=== PATIENT | male | born 1945 | race Caucasian/White ===

== ENCOUNTER → 2021-10-02 | Outpatient (CLI) | payer MEDICARE, BC ==
--- NOTE | 2021-10-04 23:19 | CT ---
EXAMINATION TYPE: CT urogram wo/w con DATE OF EXAM: 10/02/2021 COMPARISON: None HISTORY: 76-year-old male C67.9, Bladder and prostate cancer TECHNIQUE: Contiguous axial scanning of the abdomen and pelvis performed without and with IV Contrast , patient injected with 80 mL of Isovue 370. Delayed images through the kidneys and bladder were obta ined. Coronal/sagittal reconstructions performed. 3-D reconstructions generated on a dedicated [employer] workstation. CT DLP: 4038.39 mGycm Automated exposure control for dose reduction was used. FINDINGS: Heart normal size without pericardial effusion. Prominent epicardial fat pad. Tiny hiatal hernia. Scott e scattered reticular changes in the lower lungs. Lungs are reported separately. Subpleural fat along the posterior costophrenic angles without pleural effusion. 7 mm hypodensity left hepatic dome too small for accurate CT characterization, likely a cyst. Liver mildly enlarged at 19.0 cm. Otherwise, no focal liver lesion. No biliary ductal dilatation. Portal ve nous system is patent. Gallbladder, adrenal glands, and pancreas within normal limits. Spleen with anterior splenule and a couple calcified granulomas. The kidneys show a couple punctate 2 mm nonobstructive calculi in the lower pole on each side. Extrar enal pelvis on the left. No suspicious renal lesion on either side. Symmetric uptake and excretion of contrast from both kidneys. There is nonopacification of the distal half of the left ureter. Only a small segment of the distal third right ureter remains unopacified. No definite suspicious abnormality or soft tissue thickening is seen. No abnormal filling defects see n within the renal collecting system. There is a 1.2 cm parapelvic cyst right kidney. Small fatty umbilical hernia. No dilated small bowel, free fluid, or free air. Normal appendix. Scattered mild stool burden. Redundant sigmoid colon. Scattered mid abdominal mesenteric lymph nodes are borderline enlarged up to 9 mm. Abnormal fungating mass along the posterior base of the bladder measuring 5.8 cm wide by 4.9 cm crani ocaudal by 3.5 cm AP. This becomes contiguous with a thin irregular prostate gland. The prostatic ure ter is displaced over to the right secondary to heterogeneous, irregular prostatic mass. The prostate gland itself measures up to 5.4 cm wide. Possible posterior extension into the perirectal space and invasion into the wall of the distal rectu m anteriorly, refer to series 15 axial image 86. Abnormal enlarged 2.1 cm left obturator chain lymph node, axial image 76. Abnormal enlarged 2.0 cm left inguinal lymph node, axial image 92. Nonspecific 9 mm upper perirectal nodularity on the right, axial image 72. Lower mid mesenteric 1.1 cm nodularity, axial image 66. No abnormal fluid collection in the pelvis. Bones: At least mild degenerative change of the hips. Degenerative changes bilateral SI joints. Moderate to advanced dissection of the degenerative change mid to lower lumbar spine along with hyper trophic facet arthropathy. Nonspecific few small sclerotic foci probably represent lymph nodes. These can be correlated with nuc [facility] whole body bone scan. IMPRESSION: 1. CHEST REPORTED SEPARATELY. 2. FUNGATING MASS ALONG THE POSTERIOR WALL OF THE BASE OF THE BLADDER MEASURING UP TO 5.8 X 4.9 X 2.5 CM. CONTIGUOUS EXTENSION INTO THE PROSTATE GLAND WHICH IS ENLARGED UP TO 5.4 CM WIDE. THE PROSTATIC URETHRA IS DISPLACED OVER TO THE RIGHT SECONDARY TO THE UNDERLYING MASS. 3. SCATTERED MID ABDOMINAL MESENTERIC LYMPH NODES BORDERLINE ENLARGED UP TO 9 MM ARE NONSPECIFIC. FOL LOW-UP TO EXCLUDE EARLY METASTATIC DISEASE. A 2.0 CM LEFT INGUINAL LYMPH NODE, A 2.1 CM LEFT OBTURATO R CHAIN LYMPH NODE, AND A 1.1 CM LOWER MID MESENTERIC NODULE ARE MORE SUSPICIOUS FOR METASTATIC DISEA SE. 4. POSSIBLE FOCAL DIRECT INVASION POSTERIORLY FROM THE PROSTATE GLAND TO THE ANTERIOR WALL OF THE LOW ER RECTUM. 5. NO URETERAL OBSTRUCTION. A PUNCTATE 2 MM CALCULUS IS PRESENT IN THE LOWER POLE OF EACH KIDNEY.
--- NOTE | 2021-10-05 00:11 | CT ---
EXAMINATION TYPE: CT chest w con DATE OF EXAM: 10/02/2021 COMPARISON: None HISTORY: 76-year-old male C67.9, Bladder and prostate cancer TECHNIQUE: Contiguous axial scanning of the chest after the administration of dose of abd/pelvis urog luzma mL of Isovue 370. Coronal/sagittal reconstructions performed. CT DLP: 615.61mGycm. Automatic exposure control utilized for a dose reduction. FINDINGS: Heart normal size without pericardial effusion. Conventional arch vessel branching anatomy. Mildly ectatic upper descending thoracic aorta 3.1 cm. Scattered nonenlarged mesenteric lymph nodes, largest lower right paratracheal measuring 8 mm. No tho racic lymphadenopathy by CT size criteria. There is a calcified lymph node lower right paraesophageal suggesting prior granulomatous disease. Some mild patchy and reticular changes in the anterior right upper lobe could represent some intersti tial scarring or residual pneumonitis, axial image 12. Some reticular mild patchy densities in the lo wer lungs could represent the same. No pleural effusion. Prominent subpleural fat at the lower lungs. Abdomen reported separately. Bones: No osseous destructive process. 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 IMPRESSION: 1. Some mild patchy and reticular changes in the anterior right upper lobe and also in the bilateral lower lungs. This could represent areas of interstitial scarring or residual pneumonitis. Correlate f or any recent infection such as COVID pneumonia. 2. No evidence for metastatic disease in the chest. 3. Abdomen and pelvis reported separately.
== END | disposition home or self-care (01) ==
LOC: RADCTMAIN 13:07
PROVIDERS: ATTEND Urology
DX: C67.4 Malignant neoplasm of posterior wall of bladder (principal); N20.0 Calculus of kidney; R59.0 Localized enlarged lymph nodes; R91.8 Other nonspecific abnormal finding of lung field
CPT/HCPCS: 82565; 84520; 71260; 74178; 36415; 74400; Q9967

== ENCOUNTER → 2022-06-24 | Outpatient (CLI) | payer MEDICARE, BC ==
--- NOTE | 2022-06-24 13:50 | CT ---
EXAMINATION TYPE: CT ChestAbdPelvis w con DATE OF EXAM: 06/24/2022 COMPARISON: CT chest and urogram October 02, 2021 HISTORY: obs for mets. hx of bladder ca CT DLP: 2334.70 mGycm. Automated Exposure Control for Dose Reduction was Utilized. CONTRAST: CT scan of the thorax, abdomen and pelvis is performed without oral but with IV Contrast, patient inj ected with 50 mL of Isovue 300. FINDINGS: LUNGS: Dependent atelectasis in the right lung. No suspicious new noncalcified greater than 5 mm nodu les or masses. No pleural effusion or pneumothorax seen bilaterally. Tiny calcifications or calcified nodules medial right lung base redemonstrated. Elevated left hemidiaphragm redemonstrated. MEDIASTINUM: There are no new greater than 1 cm hilar or mediastinal lymph nodes. No cardiomegaly o r pericardial effusion is seen. Inferior calcified nodule or lymph node just above diaphragm redemons trated. LIVER/GB: No significant abnormality is appreciated. PANCREAS: No significant abnormality is seen. SPLEEN: No significant abnormality is seen. ADRENALS: No significant abnormality is seen. KIDNEYS: Symmetric cortical medullary uptake and excretion without hydronephrosis seen bilaterally. A dequate distention of bladder with mild wall thickening greatest superiorly and mild ill-defined flui d and fat stranding superiorly. Prior posterior-inferior mass extending into prostate gland is not cl early seen on current exam. BOWEL: No significant abnormality is seen. Normal-appearing appendix incidentally noted. GENITAL ORGANS: Prostate gland is now normal in size. LYMPH NODES: No new greater than 1cm abdominal or pelvic lymph nodes are appreciated. Some prominent but subcentimeter predominantly left-sided mesenteric lymph nodes are redemonstrated and stable, for reference axial image 76. OSSEOUS STRUCTURES: Mild/moderate multilevel spurring in the thoracolumbar spine with areas of disc s pace narrowing greatest right L3-L4 and left L4-L5 levels redemonstrated. OTHER: Small amount of free fluid in the presacral space on current study. IMPRESSION: Interval successful treatment of bladder mass/neoplasm without obvious new or residual ma ss or adenopathy to suggest persistent or metastatic neoplasm. Posttreatment changes to the bladder a re suspected causing the mild wall thickening and mild to moderate adjacent fluid and fat stranding e xtending into the presacral space. Correlate clinically.
== END | disposition home or self-care (01) ==
LOC: RADCTMAIN 11:13
PROVIDERS: ATTEND Internal Medicine Hematology & Oncology
DX: C67.4 Malignant neoplasm of posterior wall of bladder (principal)
CPT/HCPCS: 82565; 84520; 71260; 74177; 36415; Q9967

== ENCOUNTER → 2022-09-27 | Outpatient (CLI) | payer MEDICARE, BC ==
--- NOTE | 2022-09-27 12:41 | CT ---
EXAMINATION TYPE: CT ChestAbdPelvis w con CT DLP: 2134.20 mGycm, Automated exposure control for dose reduction was used. DATE OF EXAM: 09/27/2022 12:02 PM COMPARISON: 06/24/2022 CT abdomen pelvis, CT urogram 10/02/2021. CLINICAL INDICATION:Male, 77 years old with history of C67.4 Bladder Ca , Z03.89 suspect mets, Hx yuliana dder ca. Suspect mets. Technique: Multiple axial images of the chest, abdomen, and pelvis were obtained. Two-dimensional cor onal and sagittal reconstructions were obtained. Contrast used:70 mL of Isovue 300 with IV Contrast, Oral contrast used: with Oral Contrast Findings: CHEST: LUNGS/ PLEURA: No evidence enlarging or new pulmonary nodules. No focal consolidation, pneumothorax o r pleural effusion. Scattered streaky atelectasis/scarring. AIRWAY: Patent and unremarkable. HEART: Heart is within normal limits for size. Mild coronary artery atherosclerosis. MEDIASTINUM: No gross evidence of adenopathy. VASCULATURE: No aortic aneurysm. MUSCULOSKELETAL: No acute osseous abnormalities. SOFT TISSUES/LYMPH NODES: Unremarkable. LOWER NECK: No significant findings. ABDOMEN: ABDOMEN LIVER: Unremarkable GALLBLADDER AND BILE DUCTS: Unremarkable. PANCREAS: Unremarkable. SPLEEN: Small splenules are present. ADRENAL GLANDS: Unremarkable. KIDNEYS AND URETERS: No evidence of hydronephrosis or renal calculus. The ureters are unremarkable. PELVIS BLADDER: Mild posterior bladder wall thickening measuring up to 1.0 cm which appears similar to prior on 06/24/2022. REPRODUCTIVE: Prostate gland appears surgically absent. ABDOMEN & PELVIS STOMACH AND BOWEL: No evidence of bowel obstruction. PERITONEUM: No evidence of pneumoperitoneum or free fluid. VASCULATURE: No evidence of aortic aneurysm. MUSCULOSKELETAL: No acute osseous abnormalities LYMPH NODES: No gross evidence for lymphadenopathy. SOFT TISSUE/ABDOMINAL WALL: Bilateral fat-containing inguinal hernias. Fat-containing umbilical herni a. IMPRESSION: 1. No lymphadenopathy or suspicious mass in the surgical bed to suggest recurrence or metastatic dis ease. 2. Surgically absent prostate. 3. Fat-containing inguinal and umbilical hernias.
== END | disposition home or self-care (01) ==
LOC: RADCTMAIN 09:46
PROVIDERS: ATTEND Internal Medicine Hematology & Oncology
DX: C67.4 Malignant neoplasm of posterior wall of bladder (principal); K42.9 Umbilical hernia without obstruction or gangrene; K40.21 Bilateral inguinal hernia, without obstruction or gangrene, recurrent; Z90.79 Acquired absence of other genital organ(s)
CPT/HCPCS: 82565; 84520; 71260; 74177; 36415; Q9967 ×2

== ENCOUNTER → 2022-12-27 | Outpatient (CLI) | payer MEDICARE, BC ==
--- NOTE | 2022-12-27 21:50 | CT ---
EXAMINATION TYPE: CT ChestAbdPelvis wo con DATE OF EXAM: 12/27/2022 INDICATION: BLADDER CANCER. COMPARISON: 09/27/2022 CT DLP: DLP 1577 mGycm CONTRAST: Performed with Oral Contrast. No intravenous contrast TECHNIQUE: Axial images at 5 mm thick sections. Reconstructed images in the coronal plane. Delayed images through the kidneys. FINDINGS: CT CHEST: Portion of the thyroid visualized is normal. No suspicious lung nodules or focal infiltrates are present. No enlarged mediastinal or hilar adenopathy is evident. The ascending aorta diameter at the level of the main pulmonary artery is 3.9 cm. The main pulmonary artery diameter at the bifurcation is 2.[address] ABDOMEN: Liver: Normal Spleen: Normal Pancreas: Normal Adrenal glands: The adrenal glands are normal. Gallbladder: Normal Kidneys: No masses are evident. No hydronephrosis is present. No cysts are present. No renal stone s are evident. Aorta: Normal Inferior vena cava: Normal. CT PELVIS: Loops of bowel within the abdomen and pelvis are normal. Some perirectal stranding may be present wi thin the fat. There are loops of bowel which are incompletely distended or lack oral contrast limiti ng their evaluation. Appendix: Normal as visualized. Urinary bladder: No discrete mass or wall thickening is identified within the urinary bladder. Previo us posterior wall thickening may be diminished from comparison Genitourinary structures: Prostate may be small. Correlate with the patient's surgical history Osseous structures: No suspicious lytic or sclerotic lesions. IMPRESSIONS: 1. No discrete abnormality to suggest recurrent or metastatic bladder cancer. 2. There is some mild perirectal fat stranding.
== END | disposition home or self-care (01) ==
LOC: RADCTMAIN 09:47
PROVIDERS: ATTEND Internal Medicine Hematology & Oncology
DX: C67.9 Malignant neoplasm of bladder, unspecified (principal); Z03.89 Encounter for observation for other suspected diseases and conditions ruled out
CPT/HCPCS: 36415; 71250; 74176; 82565; 84520

== ENCOUNTER → 2023-04-07 | Outpatient (CLI) | payer MEDICARE, BC ==
[2023-04-07 10:01] LABS: African American GFR (CKD) 63 (>60 ml/min/1.73 sqM); Blood Urea Nitrogen 19 mg/dL (9-20); Non-African American GFR(CKD) 55 (>60 ml/min/1.73 sqM)
--- NOTE | 2023-04-07 11:20 | CT ---
EXAMINATION TYPE: CT ChestAbdPelvis w con CT DLP: 2831.9 mGycm, Automated exposure control for dose reduction was used. DATE OF EXAM: 04/07/2023 11:09 AM COMPARISON: Multiple CT chest abdomen pelvis most recent 12/27/2022 CLINICAL INDICATION:Male, 77 years old with history of C67.9 BLADDER CANCER; PHH, Bladder cancer Technique: Multiple axial images of the chest, abdomen, and pelvis were obtained following the intrav enous administration of 100 mL Isovue-300. Oral contrast was administered. Two-dimensional coronal an d sagittal reconstructions were obtained. Findings: CHEST: LUNGS/ PLEURA: No evidence enlarging or new pulmonary nodules. No focal consolidation, pneumothorax o r pleural effusion. Scattered streaky atelectasis/scarring redemonstrated. Elevated left hemidiaphrag m. AIRWAY: Patent and unremarkable. HEART: Heart is within normal limits for size. No pericardial effusion. Mild coronary artery atherosc lerosis. MEDIASTINUM: No evidence of adenopathy. Calcified subcarinal granulomas. VASCULATURE: No aortic aneurysm. MUSCULOSKELETAL: No acute osseous abnormalities. No aggressive osseous lesion. SOFT TISSUES/LYMPH NODES: Unremarkable. LOWER NECK: No significant findings. ABDOMEN: ABDOMEN LIVER: Unremarkable GALLBLADDER AND BILE DUCTS: Unremarkable. PANCREAS: Unremarkable. SPLEEN: Small splenules are present. ADRENAL GLANDS: Unremarkable. KIDNEYS AND URETERS: No evidence of hydronephrosis or renal calculus. The ureters are unremarkable. Contrast is demonstrated within both collecting systems on delayed phase. The kidneys enhance contras t symmetrically. PELVIS BLADDER: Mild posterior bladder wall thickening measuring up to 1.0 cm which appears similar to prior on 06/24/2022. REPRODUCTIVE: Posttreatment changes of the prostate gland. ABDOMEN & PELVIS STOMACH AND BOWEL: Stomach and duodenum are unremarkable. No focal bowel wall thickening or surroundi ng inflammatory changes. The appendix is within normal limits. No evidence of bowel obstruction. PERITONEUM: No evidence of pneumoperitoneum or free fluid. Similar presacral edema. VASCULATURE: Mild atherosclerotic calcifications are present throughout the abdominal aorta and its b ranches. No abdominal aortic aneurysm. MUSCULOSKELETAL: No acute osseous abnormalities. Mild multilevel degenerative disease of the lower [place] mbar spine. No aggressive osseous lesion. LYMPH NODES: No gross evidence for lymphadenopathy. SOFT TISSUE/ABDOMINAL WALL: Bilateral fat-containing inguinal hernias. Fat-containing umbilical herni a. IMPRESSION: No lymphadenopathy or suspicious mass in the surgical bed to suggest recurrence or metastatic disease .
== END | disposition home or self-care (01) ==
LOC: RADCTMAIN 09:08
PROVIDERS: ATTEND Internal Medicine Hematology & Oncology
DX: C67.4 Malignant neoplasm of posterior wall of bladder (principal); D70.2 Other drug-induced agranulocytosis; M12.9 Arthropathy, unspecified; N18.9 Chronic kidney disease, unspecified
CPT/HCPCS: 82565; 84520; 71260; 74177; 36415; Q9967

== ENCOUNTER → 2023-07-07 | Outpatient (CLI) | payer MEDICARE, BC ==
[2023-07-07 15:08] LABS: African American GFR (CKD) 63 (>60 ml/min/1.73 sqM); Blood Urea Nitrogen 25 mg/dL (9-20); Non-African American GFR(CKD) 54 (>60 ml/min/1.73 sqM)
--- NOTE | 2023-07-08 08:59 | CT ---
EXAMINATION TYPE: CT ChestAbdPelvis w con DATE OF EXAM: 07/07/2023 COMPARISON: 04/07/2023 HISTORY: f/u bladder ca CT DLP: 2483.8 mGycm Automated exposure control for dose reduction was used. CONTRAST: CT scan of the chest, abdomen and pelvis is performed with Oral Contrast and with IV Contrast, patien t injected with 80cc mL of Isovue 370. FINDINGS: LUNGS: Emphysematous changes are noted. Reticular intralobular septal thickening along the periphery of the lung likely representing mild chronic interstitial lung disease. Subsegmental consolidation mo st compatible with atelectasis or scarring stable. There is a right apical nodule image 14 measuring 7 mm and extends to the pleural surface. No focal pneumonia. No interstitial edema. No pleural effusion or pneumothorax. There are no calcific ation in lymph nodes in the subcarinal region. MEDIASTINUM: There are no greater than 1 cm hilar or mediastinal lymph nodes. No pericardial effusi on is seen. Aorta of normal caliber. Minimal coronary artery calcification. OTHER: Small calcification seen adjacent to a small hiatal hernia. LIVER/GB: No significant abnormality is appreciated. PANCREAS: No significant abnormality is seen. SPLEEN: Small granuloma noted. Small accessory spleen. ADRENALS: No significant abnormality is seen. KIDNEYS: No significant abnormality is seen. BOWEL: No evidence of obstruction. Appendix normal. Correlate for constipation. LYMPH NODES: No greater than 1 cm abdominal or pelvic lymph nodes are appreciated. OSSEOUS STRUCTURES: Hypertrophic and degenerative changes of the spine. Bilateral hip arthropathy. Sc lerosis involving the femoral heads are likely post arthritic OTHER: Bladder has a normal appearance. Prostate normal in size. IMPRESSION: 1. No diagnostic evidence of mass, pathologic adenopathy or metastases. 2. 6 mm apical nodule likely represents portions of apical scarring. Follow-up [address] scan chest recommended.
== END | disposition home or self-care (01) ==
LOC: RADCTMAIN 14:12
PROVIDERS: ATTEND Internal Medicine Hematology & Oncology
DX: C64.9 Malignant neoplasm of unspecified kidney, except renal pelvis (principal); C67.4 Malignant neoplasm of posterior wall of bladder; D70.2 Other drug-induced agranulocytosis; N18.9 Chronic kidney disease, unspecified; M12.9 Arthropathy, unspecified
CPT/HCPCS: 82565; 84520; 71260; 74177; 36415; Q9967

== ENCOUNTER → 2023-11-07 | Outpatient (CLI) | payer MEDICARE, BC ==
[2023-11-07 10:10] LABS: African American GFR (CKD) 55 (>60 ml/min/1.73 sqM); Blood Urea Nitrogen 19 mg/dL (9-20); Non-African American GFR(CKD) 48 (>60 ml/min/1.73 sqM)
--- NOTE | 2023-11-07 11:49 | CT ---
EXAMINATION TYPE: CT ChestAbdPelvis w con CT DLP: 1520 mGycm, Automated exposure control for dose reduction was used. DATE OF EXAM: 11/07/2023 11:39 AM COMPARISON: Multiple priors dating back to 04/07/2023 CLINICAL INDICATION:Male, 78 years old with history of C67.4 POSTERIOR BLADDER; PHH, BLADDER/PROSTATE CA Technique: CT ChestAbdPelvis w con; Multiple axial images were obtained. Two-dimensional coronal and sagittal reconstructions were obtained. Contrast used:80 mL of Isovue 300 with IV Contrast, Oral contrast used: with Oral Contrast Findings: CHEST: LUNGS/ PLEURA: No evidence enlarging or new pulmonary nodules. No focal consolidation, pneumothorax o r pleural effusion. Stable scattered streaky atelectasis/scarring. Elevated left hemidiaphragm, uncha nged. AIRWAY: Patent and unremarkable. HEART: Heart is within normal limits for size. No pericardial effusion. Mild coronary artery atherosc lerosis. MEDIASTINUM: No evidence of adenopathy. Calcified subcarinal granulomas. VASCULATURE: No aortic aneurysm. MUSCULOSKELETAL: No acute osseous abnormalities. No aggressive osseous lesion. SOFT TISSUES/LYMPH NODES: Unremarkable. LOWER NECK: No significant findings. ABDOMEN: ABDOMEN LIVER: Unremarkable GALLBLADDER AND BILE DUCTS: Unremarkable. PANCREAS: Unremarkable. SPLEEN: Small splenules are present. ADRENAL GLANDS: Unremarkable. KIDNEYS AND URETERS: No evidence of hydronephrosis or renal calculus. The ureters are unremarkable. Contrast is demonstrated within both collecting systems on delayed phase. The kidneys enhance contras t symmetrically. PELVIS BLADDER: Mild posterior bladder wall thickening measuring up to 1.0 cm which appears similar to prior on 06/24/2022. REPRODUCTIVE: Posttreatment changes of the prostate gland. ABDOMEN & PELVIS STOMACH AND BOWEL: Stomach and duodenum are unremarkable. No focal bowel wall thickening or surroundi ng inflammatory changes. The appendix is within normal limits. No evidence of bowel obstruction. PERITONEUM: No evidence of pneumoperitoneum or free fluid. Similar presacral edema. VASCULATURE: Mild atherosclerotic calcifications are present throughout the abdominal aorta and its b ranches. No abdominal aortic aneurysm. MUSCULOSKELETAL: No acute osseous abnormalities. Mild multilevel degenerative disease of the lower [place] mbar spine. No aggressive osseous lesion. LYMPH NODES: No gross evidence for lymphadenopathy. SOFT TISSUE/ABDOMINAL WALL: Bilateral fat-containing inguinal hernias. Fat-containing umbilical herni a. IMPRESSION: No lymphadenopathy or suspicious mass in the surgical bed to suggest recurrence or metastatic disease . .
== END | disposition home or self-care (01) ==
LOC: RADCTMAIN 09:35
PROVIDERS: ATTEND Internal Medicine Hematology & Oncology
DX: C67.4 Malignant neoplasm of posterior wall of bladder (principal); D70.2 Other drug-induced agranulocytosis; N18.9 Chronic kidney disease, unspecified; M12.9 Arthropathy, unspecified; Z85.46 Personal history of malignant neoplasm of prostate
CPT/HCPCS: 82565; 84520; 71260; 74177; 36415; Q9967

== ENCOUNTER → 2024-03-05 | Outpatient (CLI) | payer MEDICARE, BC ==
--- NOTE | 2024-03-05 18:31 | CT ---
EXAMINATION TYPE: CT ChestAbdPelvis wo con CT DLP: 1817.3 mGycm, Automated exposure control for dose reduction was used. DATE OF EXAM: 03/05/2024 6:04 PM COMPARISON: 11/07/2023 CLINICAL INDICATION:Male, 78 years old with history of C67.4 Bladder cancer; PHH, bladder ca Technique: CT ChestAbdPelvis wo con; Multiple axial images were obtained. Two-dimensional coronal and sagittal reconstructions were obtained. Contrast used: mL of , none Oral contrast used: with Oral Contrast Findings: CHEST: LUNGS/ PLEURA: No evidence enlarging or new pulmonary nodules. No focal consolidation, pneumothorax o r pleural effusion. Stable scattered streaky atelectasis/scarring. Elevated left hemidiaphragm, uncha nged. AIRWAY: Patent and unremarkable. HEART: Heart is within normal limits for size. No pericardial effusion. Mild coronary artery atherosc lerosis. MEDIASTINUM: No evidence of adenopathy. Calcified subcarinal granulomas. VASCULATURE: No aortic aneurysm. MUSCULOSKELETAL: No acute osseous abnormalities. No aggressive osseous lesion. SOFT TISSUES/LYMPH NODES: Unremarkable. LOWER NECK: No significant findings. ABDOMEN: ABDOMEN LIVER: Unremarkable GALLBLADDER AND BILE DUCTS: Unremarkable. PANCREAS: Unremarkable. SPLEEN: Small splenules are present. ADRENAL GLANDS: Unremarkable. KIDNEYS AND URETERS: No evidence of hydronephrosis or renal calculus. The ureters are unremarkable. Contrast is demonstrated within both collecting systems on delayed phase. The kidneys enhance contras t symmetrically. PELVIS BLADDER: Mild posterior bladder wall thickening measuring up to 1.0 cm which appears similar to prior on 06/24/2022. REPRODUCTIVE: Posttreatment changes of the prostate gland. ABDOMEN & PELVIS STOMACH AND BOWEL: Stomach and duodenum are unremarkable. No focal bowel wall thickening or surroundi ng inflammatory changes. The appendix is within normal limits. No evidence of bowel obstruction. PERITONEUM: No evidence of pneumoperitoneum or free fluid. Similar presacral edema. VASCULATURE: Mild atherosclerotic calcifications are present throughout the abdominal aorta and its b ranches. No abdominal aortic aneurysm. MUSCULOSKELETAL: No acute osseous abnormalities. Mild multilevel degenerative disease of the lower [place] mbar spine. No aggressive osseous lesion. LYMPH NODES: No gross evidence for lymphadenopathy. SOFT TISSUE/ABDOMINAL WALL: Bilateral fat-containing inguinal hernias. Fat-containing umbilical herni a. IMPRESSION: Similar exam, no lymphadenopathy likely or suspicious mass in the surgical bed to suggest recurrence or metastatic disease. .
== END | disposition home or self-care (01) ==
LOC: RADCTMAIN 15:37
PROVIDERS: ATTEND Internal Medicine Hematology & Oncology
DX: C67.4 Malignant neoplasm of posterior wall of bladder (principal); D70.2 Other drug-induced agranulocytosis; N18.9 Chronic kidney disease, unspecified; M12.9 Arthropathy, unspecified; I10 Essential (primary) hypertension
CPT/HCPCS: 71250; 74176

== ENCOUNTER → 2024-03-05 | Outpatient (CLI) | payer MEDICARE, BC ==
[2024-03-05 16:12] LABS: Creatinine,Urine Random 137.9 mg/dL
[2024-03-05 19:21] LABS: Basophils # (A) 0.04 X 10*3/uL (0.00-0.10); Basophils % (A) 0.9 %; Eosinophils # (A) 0.27 X 10*3/uL (0.04-0.35); Eosinophils % (A) 5.9 %; HCT 40.5 % (39.6-50.0); HGB 13.8 g/dL (13.0-17.0); Lymphocytes # (A) 1.17 X 10*3/uL (0.90-5.00); Lymphocytes % (A) 25.4 %; MCH 31.2 pg (27.0-32.0); MCHC 34.1 g/dL (32.0-37.0); MCV 91.6 FL (80.0-97.0); Mean Platelet Volume 10.3 FL (9.5-12.2); Monocytes % (A) 8.7 %; NRBC Per 100 WBC 0 X 10*3/uL (0.00-0.01); Neutrophils # (A) 2.72 X 10*3/uL (1.80-7.70); Neutrophils % (A) 58.9 %; Platelet Count 139 X 10*3/uL (140-440); RBC 4.42 X 10*6/uL (4.40-5.60); RDW 13.6 % (11.5-14.5); WBC 4.61 X 10*3/uL (4.50-10.00)
[2024-03-05 19:57] LABS: % Iron Saturation 19.39 (15.00-50.00); BUN/Creat Ratio 14.57 Ratio (12.00-20.00); Blood Urea Nitrogen 20.4 mg/dL (9.0-27.0); Calcium 9.3 mg/dL (8.7-10.3); Carbon Dioxide 24.3 mmol/L (21.6-31.8); Chloride 106 mmol/L (96-109); Glucose 119 mg/dL (70-110); Iron 64 UG/DL (65-175); Magnesium 1.5 mg/dL (1.5-2.4); Phosphorus 2.8 mg/dL (2.4-5.1); Potassium 4.4 mmol/L (3.5-5.5); Sodium 144 mmol/L (135-145); Total Iron Binding Capacity 330 UG/DL (228-460); Uric Acid 7.5 mg/dL (3.7-8.7)
[2024-03-05 20:18] LABS: Appearance,Urine Clear (Clear); Bilirubin,Urine Negative (Negative); Blood,Urine Negative (Negative); Color,Urine Yellow (Yellow); Ketones,Urine Negative (Negative); Nitrite,Urine Negative (Negative); Specific Gravity,Urine 1.018 (1.001-1.030); Urobilinogen,Urine 0.2 E.U./DL
== END | disposition home or self-care (01) ==
LOC: LABWHC1 15:11
PROVIDERS: ATTEND Nurse Practitioner Adult Health
DX: E55.9 Vitamin D deficiency, unspecified (principal); E21.3 Hyperparathyroidism, unspecified; M10.9 Gout, unspecified; N39.0 Urinary tract infection, site not specified; N18.31 Chronic kidney disease, stage 3a; D63.1 Anemia in chronic kidney disease; R80.9 Proteinuria, unspecified
CPT/HCPCS: 36415; 80048; 81003; 82306; 82570; 82728; 83540; 83550; 83735; 83970; 84100; 84156; 84550; 85025

== ENCOUNTER → 2024-09-03 | Outpatient (CLI) | payer MEDICARE, BC ==
--- NOTE | 2024-09-03 14:32 | CT ---
EXAMINATION TYPE: CT ChestAbdPelvis wo con CT DLP: 1818.10 mGycm, Automated exposure control for dose reduction was used. DATE OF EXAM: 09/03/2024 1:13 PM COMPARISON: Multiple CT chest abdomen pelvis with most recent 03/05/2024 CLINICAL INDICATION:Male, 79 years old with history of C67.4 bladder ca; PHH, F/U BLADDER CANCER Technique: Multiple axial images of the chest, abdomen, and pelvis were obtained following without th e administration intravenous contrast. Oral contrast was administered. Evaluation is limited due to l ack of intravenous contrast. Two-dimensional coronal and sagittal reconstructions were obtained. Findings: CHEST: LUNGS/ PLEURA: No pleural effusion, focal consolidation, pneumothorax. No enlarging or new pulmonary nodules. Stable scattered streaky scarring. AIRWAY: Patent and unremarkable.. HEART: Size within normal limits.No pericardial effusion. Mild coronary atherosclerosis. MEDIASTINUM: No gross evidence of adenopathy. Calcified subcarinal granulomas. VASCULATURE: No aortic aneurysm. MUSCULOSKELETAL: No acute osseous abnormalities. No aggressive osseous lesion. SOFT TISSUES/LYMPH NODES: Mild bilateral gynecomastia. LOWER NECK: No significant findings. ABDOMEN: ABDOMEN LIVER: Unremarkable noncontrast appearance GALLBLADDER AND BILE DUCTS: Cholelithiasis. No biliary dilatation. PANCREAS: Unremarkable. SPLEEN: Unremarkable. ADRENAL GLANDS: Unremarkable. KIDNEYS AND URETERS: No evidence of hydronephrosis or renal calculus. PELVIS BLADDER: Similar mild posterior bladder wall thickening likely related to posttreatment changes. REPRODUCTIVE: Post treatment changes of the prostate gland redemonstrated. ABDOMEN & PELVIS STOMACH AND BOWEL: Stomach and duodenum are unremarkable. Enteric contrast reaches the splenic flexur e. The appendix is within normal limits. No focal bowel wall thickening or surrounding inflammatory c hanges. No evidence of bowel obstruction. PERITONEUM: No evidence of pneumoperitoneum or free fluid. VASCULATURE: Mild atherosclerotic calcifications are present throughout the abdominal aorta and its b ranches. Prominent calcified plaque at the origin of the left renal artery. Pelvic phleboliths. MUSCULOSKELETAL: No acute osseous abnormalities. No aggressive osseous lesion. Degenerative disc dise ase of the lumbar spine. LYMPH NODES: No gross evidence for lymphadenopathy. SOFT TISSUE/ABDOMINAL WALL: Right inguinal hernia containing fat. IMPRESSION: Overall stable examination with no evidence of lymphadenopathy or suspicious mass in the surgical bed to suggest recurrence or metastatic disease. [facility], , 09/03/2024 2:30 PM
== END | disposition home or self-care (01) ==
LOC: RADCTMAIN 10:57
PROVIDERS: ATTEND Internal Medicine Hematology & Oncology
DX: C67.4 Malignant neoplasm of posterior wall of bladder (principal)
CPT/HCPCS: 71250; 74176

== ENCOUNTER → 2025-03-18 | Outpatient (CLI) | payer MEDICARE, BC ==
--- NOTE | 2025-03-18 13:13 | CT ---
EXAMINATION TYPE: CT ChestAbdPelvis wo con CT DLP: 1588.6 mGycm, Automated exposure control for dose reduction was used. DATE OF EXAM: 03/18/2025 1:01 PM COMPARISON: Multiple CT chest abdomen pelvis with most recent 09/03/2024 CLINICAL INDICATION:Male, 79 years old with history of C67.4 bladder cancer; PHH, f/u bladder ca Technique: Multiple axial images of the chest, abdomen, and pelvis were obtained following without th e administration intravenous contrast. Oral contrast was administered. Evaluation is limited due to l ack of intravenous contrast. Two-dimensional coronal and sagittal reconstructions were obtained. Findings: CHEST: LUNGS/ PLEURA: No pleural effusion, focal consolidation, pneumothorax. No enlarging or new pulmonary nodules. Stable scattered streaky scarring. AIRWAY: Patent and unremarkable.. HEART: Size within normal limits.No pericardial effusion. Mild coronary atherosclerosis. MEDIASTINUM: No gross evidence of adenopathy. Calcified subcarinal granulomas. VASCULATURE: No aortic aneurysm. MUSCULOSKELETAL: No acute osseous abnormalities. No aggressive osseous lesion. SOFT TISSUES/LYMPH NODES: Mild bilateral gynecomastia. LOWER NECK: No significant findings. ABDOMEN: ABDOMEN LIVER: Unremarkable noncontrast appearance GALLBLADDER AND BILE DUCTS: Cholelithiasis. No biliary dilatation. Gas identified within the common b ile duct extending into the cystic duct. Trace gas within the gallbladder fundus. PANCREAS: Unremarkable. SPLEEN: Punctate calcified granuloma redemonstrated. ADRENAL GLANDS: Unremarkable. KIDNEYS AND URETERS: No evidence of hydronephrosis or renal calculus. PELVIS BLADDER: Similar mild posterior bladder wall thickening likely related to posttreatment changes. REPRODUCTIVE: Post treatment changes of the prostate gland redemonstrated. Moderate sized left hydroc fran partially visualized. ABDOMEN & PELVIS STOMACH AND BOWEL: Stomach and duodenum are unremarkable. Enteric contrast reaches the splenic flexur e. The appendix is within normal limits. No focal bowel wall thickening or surrounding inflammatory c hanges. No evidence of bowel obstruction. PERITONEUM: No evidence of pneumoperitoneum or free fluid. Similar presacral fat stranding likely rel ated to posttreatment changes. VASCULATURE: Mild atherosclerotic calcifications are present throughout the abdominal aorta and its b ranches. Prominent calcified plaque at the origin of the left renal artery. Pelvic phleboliths. MUSCULOSKELETAL: No acute osseous abnormalities. No aggressive osseous lesion. Degenerative disc dise ase of the lumbar spine. Degenerative changes of bilateral SI joints with anterior bridging. LYMPH NODES: No gross evidence for lymphadenopathy. SOFT TISSUE/ABDOMINAL WALL: Small right inguinal hernia containing fat. Small fat filled ventral vinicio ia. IMPRESSION: 1. No evidence of lymphadenopathy or suspicious mass in the surgical bed to suggest recurrence or me tastatic disease. 2. Pneumobilia with gas in the common bile duct extending to the cystic duct and trace gas within th e gallbladder lumen. Cholelithiasis. Possibly related to sphincterotomy or sphincter of Jamie dysfunct ion. Correlate clinically. [facility], , 03/18/2025 1:11 PM
== END | disposition home or self-care (01) ==
LOC: RADCTMAIN 11:01
PROVIDERS: ATTEND Internal Medicine Hematology & Oncology
DX: K80.20 Calculus of gallbladder without cholecystitis without obstruction (principal); C67.4 Malignant neoplasm of posterior wall of bladder; I10 Essential (primary) hypertension; D70.2 Other drug-induced agranulocytosis; M12.9 Arthropathy, unspecified; N18.9 Chronic kidney disease, unspecified; K83.8 Other specified diseases of biliary tract; I25.10 Atherosclerotic heart disease of native coronary artery without angina pectoris
CPT/HCPCS: 71250; 74176